=== PATIENT | female | born 1945 ===

== ENCOUNTER 2019-03-28 10:56 | Inpatient (IN) | payer OTHER ==
[~2019-03-28] VITALS: Ht 160 cm; Wt 70.3 kg
[2019-05-30] MEDS ORDERED: AVAPRO150 MG PO (08:07)
[2019-05-30] MEDS ORDERED: FOSAMAX70 MG PO (08:08)
[2019-05-30] MEDS ORDERED: SINGULAIR10 MG PO (08:08)
[2019-05-30] MEDS ORDERED: VIT D PO (08:09)
[2019-05-30] MEDS ORDERED: LIPITOR PO (08:09)
[2019-05-30] MEDS ORDERED: ALBUTEROL0.63 MG/3 IH (08:09)
[2019-05-31] MEDS ORDERED: ATORVASTATIN CA10 MG PO (16:18)
[2019-05-31] MEDS ORDERED: VITAMIN D400 UNI2 PO (16:20)
== END 2019-06-03 20:54 | DRG 470 ==
LOC: SURG 05-24 08:00 → O/R 05-31 05:22 → SURH 05-31 05:22 → SURG 05-31 08:00 → SURH 05-31 10:00
PROVIDERS: ADMIT Orthopaedic Surgery
PROC: 0SRC0J9 Replacement of Right Knee Joint with Synthetic Substitute, Cemented, Open Approach (ICD-10-PCS; principal; 2019-05-31 09:45)
DX: M17.11 Unilateral primary osteoarthritis, right knee (principal); D62 Acute posthemorrhagic anemia; J45.909 Unspecified asthma, uncomplicated; Z96.651 Presence of right artificial knee joint